=== PATIENT | female | born 1965 | race Caucasian/White ===

== ENCOUNTER 2018-07-08 08:52 | Outpatient (CLI) | payer BC ==
--- NOTE | 2018-07-08 10:21 | RAD ---
TWO VIEW ABDOMEN: Indication: Constipation, pain. FINDINGS: Lung bases are clear. There is no free air. Metallic instrumentation overlies the umbilical region. T here is moderate retained fecal material throughout the colon. Bowel gas pattern is nonobstructed. Os seous structures are nonacute in appearance. IMPRESSION: 1. Moderate retained fecal material in the colon. 2. No bowel obstruction or free air. POS: TPC
== END 2018-07-08 08:53 | disposition home or self-care (01) ==
LOC: BICRAD 08:52
PROVIDERS: ATTEND Family Medicine
DX: K59.00 Constipation, unspecified (principal)
CPT/HCPCS: 74018

== ENCOUNTER 2021-05-19 10:11 | Inpatient (IN) | payer BC ==
[2021-05-19 12:40] VITALS: BMI 24.0
[2021-05-19] MEDS ORDERED: Acetaminophen 650 MG Suppository PR PRN (12:45)
[2021-05-19] MEDS ORDERED: FLU VACC QS2021-22(6MOS UP)/PF 60 MCG/0.5 ML SYRINGE IM ONE (13:00)
[2021-05-19] MEDS ORDERED: Vancomycin 1 GM in Premix Bag 1 BAG IVPB SCH (13:00)
[2021-05-19 13:31] LABS: #Lymphocytes 1.3 thou/uL (1.20-3.40); #Monocytes 0.6 thou/uL (0.11-0.59); #Neutrophils 4.4 thou/uL (1.40-6.50); %Basophils 0.3 % (0.0-1.0); %Eosinophils 0.7 % (0.0-10.0); %Lymphocytes 20.9 % (21.0-51.0); %Monocytes 8.9 % (0.0-10.0); %Neutrophils 69.2 % (42.0-75.0); Hemoglobin 12.4 g/dL (12.0-16.0); Mean Corpuscular HGB CONC 35.4 g/dL (32.0-36.0); Mean Corpuscular Hemoglobin 32.5 pg (27.0-31.0); Mean Platelet Volume 9.1 fL (7.4-10.4); Platelet Count 138 thou/uL (130-400); RBC Distribution Width 11.3 % (11.5-14.5); Red Blood Cell (RBC) Count 3.82 mill/uL (4.20-5.40); White Blood Cell (WBC) Count 6.4 thou/uL (4.8-10.8)
[2021-05-19] MEDS: Fentanyl 100 MCG/2 ML VIAL SLOW IVP SCH ×5 (13:45→22:35)
[2021-05-19 13:51] LABS: ALT (SGPT) 29 U/L (8-55); AST (SGOT) 24 U/L (5-34); Albumin 4.1 g/dL (3.5-5.0); Alkaline Phosphatase 63 U/L (40-110); Anion Gap 14 mmol/L (10-20); BUN (Urea Nitrogen) 11 mg/dL (9.8-20.1); Bilirubin, Total 0.8 mg/dL (0.2-1.2); Calc. Creatinine Clearance 94 mL/min (70-130); Calcium 8.9 mg/dL (7.8-10.44); Carbon Dioxide 21 mmol/L (22-29); Chloride 107 mmol/L (98-107); Globulin 2.5 g/dL (2.4-3.5); Glucose 103 mg/dL (70-105); Lactic Acid 0.6 mmol/L (0.5-2.2); Potassium 3.9 mmol/L (3.5-5.1); Protein, Total 6.6 g/dL (6.0-8.3); Sodium 138 mmol/L (136-145)
[2021-05-19] MEDS ORDERED: ceFAZolin Sodium/D5W 2 GM in Premix Bag 1 BAG IVPB SCH (14:00)
[2021-05-19] MEDS: ceFAZolin Sodium/D5W 2 GM in Premix Bag 1 BAG IVPB SCH ×2 (16:15→23:25)
[2021-05-19] MEDS: Fentanyl 100 MCG/2 ML VIAL SLOW IVP PRN (18:00)
[2021-05-19 18:13] LABS: SARS-CoV-2 PCR by NAA Not Detected (NotDetected)
[2021-05-19] MEDS: HYDROcodone/Acetaminophen 10/325 mg Tablet PO PRN (21:00)
[2021-05-19] MEDS: Temazepam 15 MG CAP PO SCH (23:26)
[2021-05-20] MEDS: Fentanyl 100 MCG/2 ML VIAL SLOW IVP SCH ×11 (02:00→22:00)
[2021-05-20] MEDS: Fentanyl 100 MCG/2 ML VIAL SLOW IVP PRN (05:36)
[2021-05-20] MEDS: ceFAZolin Sodium/D5W 2 GM in Premix Bag 1 BAG IVPB SCH ×3 (06:18→22:24)
[2021-05-20] MEDS: HYDROcodone/Acetaminophen 10/325 mg Tablet PO PRN ×3 (07:21→22:15)
[2021-05-20 10:54] LABS: #Eosinphils 0.1 thou/uL (0.0-0.7); #Lymphocytes 1.5 thou/uL (1.20-3.40); #Monocytes 0.6 thou/uL (0.11-0.59); #Neutrophils 4.3 thou/uL (1.40-6.50); %Basophils 0.4 % (0.0-1.0); %Eosinophils 1.5 % (0.0-10.0); %Lymphocytes 23.1 % (21.0-51.0); %Monocytes 9.7 % (0.0-10.0); %Neutrophils 65.3 % (42.0-75.0); Hemoglobin 12.3 g/dL (12.0-16.0); Mean Corpuscular HGB CONC 34.2 g/dL (32.0-36.0); Mean Corpuscular Hemoglobin 31.5 pg (27.0-31.0); Mean Platelet Volume 9.2 fL (7.4-10.4); Platelet Count 152 thou/uL (130-400); RBC Distribution Width 11.3 % (11.5-14.5); Red Blood Cell (RBC) Count 3.91 mill/uL (4.20-5.40); White Blood Cell (WBC) Count 6.5 thou/uL (4.8-10.8)
[2021-05-20] MEDS ORDERED: Vancomycin HCl 1 GM in Sodium Chloride 0.9% 250 ML 250 ML IVPB SCH (11:00)
[2021-05-20] MEDS: Vancomycin HCl 1.25 GM in Sodium Chloride 0.9% 250 ML 250 ML IVPB SCH ×2 (11:54→23:39)
[2021-05-20] MEDS ORDERED: Bupivacaine 0.25% HCL 30 ML VIAL ONE (14:11)
[2021-05-20] MEDS ORDERED: EPINEPHrine 1 MG/ML AMP ONE (14:11)
[2021-05-20] MEDS ORDERED: Fentanyl 100 MCG/2 ML VIAL ONE ×2 (14:12→15:32)
[2021-05-20] MEDS ORDERED: ceFAZolin 2 GM/DEX 5% 100 ML BAG ONE (14:18)
[2021-05-20] MEDS ORDERED: ePHEDrine 50 MG/ML VIAL ONE (14:22)
[2021-05-20] MEDS ORDERED: Dexamethasone 20 MG/5 ML VIAL ONE (14:22)
[2021-05-20] MEDS ORDERED: PROPOFOL 200 MG/20 ML VIAL ONE (14:22)
[2021-05-20] MEDS ORDERED: Ondansetron PF 4 MG/2 ML Vial ONE (14:22)
[2021-05-20] MEDS ORDERED: Lidocaine 1% PF 5 ML VIAL ONE (14:22)
[2021-05-20] MEDS ORDERED: Bupivacaine PF 0.5% 30 ML VIAL ONE (14:48)
[2021-05-20] MEDS ORDERED: Neomycin-Polymyxin 1 ML AMP ONE (15:02)
[2021-05-20] MEDS: Temazepam 15 MG CAP PO SCH (23:39)
[2021-05-21] MEDS: Fentanyl 100 MCG/2 ML VIAL SLOW IVP SCH ×9 (00:30→14:59)
[2021-05-21] MEDS: HYDROcodone/Acetaminophen 10/325 mg Tablet PO PRN ×4 (06:20→21:31)
[2021-05-21] MEDS: ceFAZolin Sodium/D5W 2 GM in Premix Bag 1 BAG IVPB SCH ×3 (07:31→22:19)
[2021-05-21 10:55] LABS: #Lymphocytes 1.6 thou/uL (1.20-3.40); #Monocytes 0.9 thou/uL (0.11-0.59); #Neutrophils 6.1 thou/uL (1.40-6.50); %Basophils 0.2 % (0.0-1.0); %Eosinophils 0.5 % (0.0-10.0); %Lymphocytes 18.5 % (21.0-51.0); %Monocytes 10.3 % (0.0-10.0); %Neutrophils 70.6 % (42.0-75.0); Hemoglobin 12.4 g/dL (12.0-16.0); Mean Corpuscular HGB CONC 34.3 g/dL (32.0-36.0); Mean Corpuscular Hemoglobin 31.4 pg (27.0-31.0); Mean Corpuscular Volume 91.5 fL (78.0-98.0); Mean Platelet Volume 9.7 fL (7.4-10.4); Platelet Count 172 thou/uL (130-400); RBC Distribution Width 11.2 % (11.5-14.5); Red Blood Cell (RBC) Count 3.95 mill/uL (4.20-5.40); White Blood Cell (WBC) Count 8.7 thou/uL (4.8-10.8)
[2021-05-21] MEDS: Vancomycin HCl 1.25 GM in Sodium Chloride 0.9% 250 ML 250 ML IVPB SCH ×2 (11:07→23:34)
[2021-05-21] MEDS: Fentanyl 100 MCG/2 ML VIAL SLOW IVP PRN (12:14)
[2021-05-21] MEDS ORDERED: Butorphanol Tartrate 1 MG/ML VIAL SLOW IVP PRN (14:43)
[2021-05-21 22:26] LABS: Vancomycin, Trough 12.1 ug/mL
[2021-05-22] MEDS: Temazepam 15 MG CAP PO SCH ×2 (00:01→21:52)
[2021-05-22] MEDS: HYDROcodone/Acetaminophen 10/325 mg Tablet PO PRN ×4 (01:16→20:15)
[2021-05-22] MEDS: ceFAZolin Sodium/D5W 2 GM in Premix Bag 1 BAG IVPB SCH (06:08)
[2021-05-22 07:18] LABS: Anion Gap 12 mmol/L (10-20); BUN (Urea Nitrogen) 13 mg/dL (9.8-20.1); Calc. Creatinine Clearance 94 mL/min (70-130); Calcium 8.8 mg/dL (7.8-10.44); Carbon Dioxide 24 mmol/L (22-29); Chloride 108 mmol/L (98-107); Glucose 116 mg/dL (70-105); Potassium 4.5 mmol/L (3.5-5.1); Sodium 139 mmol/L (136-145)
[2021-05-22] MEDS ORDERED: Milk Of Magnesia 30 ML UDCUP PO SCH (08:00)
[2021-05-22] MEDS: Vancomycin HCl 1.25 GM in Sodium Chloride 0.9% 250 ML 250 ML IVPB SCH (11:05)
[2021-05-22] MEDS ORDERED: traMADol HCl 50 MG TAB PO PRN (16:19)
[2021-05-22] MEDS ORDERED: Meperidine HCl/PF 25 MG/ML VIAL IM PRN (16:21)
[2021-05-22] MEDS ORDERED: Ketorolac Tromethamine 30 MG/ML VIAL IVP PRN (16:21)
[2021-05-22] MEDS ORDERED: Communication Order-Pharmacy FS SCH (16:30)
[2021-05-22] MEDS ORDERED: TETANUS AND DIPHTHERIA TOX/PF 0.5 ML DISP.SYRIN IM SCH (16:30)
[2021-05-22] MEDS: Fentanyl 100 MCG/2 ML VIAL SLOW IVP PRN (16:44)
[2021-05-22] MEDS: Aspirin 81 mg Enteric Coated Tablet PO SCH (20:18)
[2021-05-23 07:26] LABS: #Eosinphils 0.2 thou/uL (0.0-0.7); #Lymphocytes 1.5 thou/uL (1.20-3.40); #Monocytes 0.3 thou/uL (0.11-0.59); #Neutrophils 1.5 thou/uL (1.40-6.50); %Basophils 1.2 % (0.0-1.0); %Eosinophils 4.7 % (0.0-10.0); %Lymphocytes 42.7 % (21.0-51.0); %Neutrophils 42.3 % (42.0-75.0); Hemoglobin 12.6 g/dL (12.0-16.0); Mean Corpuscular HGB CONC 35.9 g/dL (32.0-36.0); Mean Corpuscular Hemoglobin 32.7 pg (27.0-31.0); Mean Corpuscular Volume 91.1 fL (78.0-98.0); Platelet Count 183 thou/uL (130-400); RBC Distribution Width 11.1 % (11.5-14.5); Red Blood Cell (RBC) Count 3.85 mill/uL (4.20-5.40); White Blood Cell (WBC) Count 3.6 thou/uL (4.8-10.8)
[2021-05-23 07:41] LABS: Anion Gap 12 mmol/L (10-20); BUN (Urea Nitrogen) 15 mg/dL (9.8-20.1); Calc. Creatinine Clearance 93 mL/min (70-130); Calcium 9.2 mg/dL (7.8-10.44); Carbon Dioxide 25 mmol/L (22-29); Chloride 105 mmol/L (98-107); Glucose 93 mg/dL (70-105); Potassium 4.4 mmol/L (3.5-5.1); Sodium 138 mmol/L (136-145)
[2021-05-23] MEDS ORDERED: Ondansetron PF 4 MG/2 ML Vial IVP PRN (08:36)
[2021-05-23] MEDS: Aspirin 81 mg Enteric Coated Tablet PO SCH ×2 (09:14→20:25)
[2021-05-23] MEDS: HYDROcodone/Acetaminophen 10/325 mg Tablet PO PRN ×2 (11:53→15:57)
[2021-05-23] MEDS: Morphine 4 MG/ML VIAL SLOW IVP PRN (15:28)
[2021-05-23] MEDS ORDERED: Milk Of Magnesia 30 ML UDCUP PO SCH (19:00)
[2021-05-23] MEDS: Temazepam 15 MG CAP PO SCH (22:15)
[2021-05-24 07:34] LABS: #Eosinphils 0.1 thou/uL (0.0-0.7); #Lymphocytes 1.7 thou/uL (1.20-3.40); #Monocytes 0.5 thou/uL (0.11-0.59); #Neutrophils 1.8 thou/uL (1.40-6.50); %Eosinophils 2.7 % (0.0-10.0); %Lymphocytes 41.7 % (21.0-51.0); %Monocytes 11.8 % (0.0-10.0); %Neutrophils 42.8 % (42.0-75.0); Hemoglobin 13.5 g/dL (12.0-16.0); Mean Corpuscular HGB CONC 34.6 g/dL (32.0-36.0); Mean Corpuscular Hemoglobin 31.6 pg (27.0-31.0); Mean Corpuscular Volume 91.3 fL (78.0-98.0); Mean Platelet Volume 8.6 fL (7.4-10.4); Platelet Count 198 thou/uL (130-400); RBC Distribution Width 11.1 % (11.5-14.5); Red Blood Cell (RBC) Count 4.27 mill/uL (4.20-5.40); White Blood Cell (WBC) Count 4.1 thou/uL (4.8-10.8)
[2021-05-24] MEDS: HYDROcodone/Acetaminophen 10/325 mg Tablet PO PRN ×2 (07:47→22:45)
[2021-05-24] MEDS: Aspirin 81 mg Enteric Coated Tablet PO SCH ×2 (07:48→20:47)
[2021-05-24 07:54] LABS: Anion Gap 13 mmol/L (10-20); BUN (Urea Nitrogen) 15 mg/dL (9.8-20.1); Calc. Creatinine Clearance 82 mL/min (70-130); Calcium 9.4 mg/dL (7.8-10.44); Carbon Dioxide 25 mmol/L (22-29); Chloride 105 mmol/L (98-107); Glucose 101 mg/dL (70-105); Potassium 4.5 mmol/L (3.5-5.1); Sodium 138 mmol/L (136-145)
[2021-05-24] MEDS ORDERED: MEROPENEM 1 GM/50 ML 1 GM in Premix Bag 1 BAG IVPB SCH (08:15)
[2021-05-24] MEDS ORDERED: Meropenem 1 GM in Sodium Chloride 0.9% 100 ML IVPB SCH (14:00)
[2021-05-24] MEDS: Fentanyl 100 MCG/2 ML VIAL SLOW IVP PRN (14:20)
[2021-05-24] MEDS: Morphine 4 MG/ML VIAL SLOW IVP PRN (15:54)
[2021-05-24] MEDS: MEROPENEM 1 GM/50 ML 1 GM in Premix Bag 1 BAG IVPB SCH (16:03)
[2021-05-24] MEDS ORDERED: Fentanyl 100 MCG/2 ML VIAL ONE (17:23)
[2021-05-24] MEDS ORDERED: Bacitracin Zinc Ointment 30 gm TUBE ONE (17:24)
[2021-05-24] MEDS ORDERED: Bupivacaine PF 0.5% 30 ML VIAL ONE (17:24)
[2021-05-24] MEDS ORDERED: Neomycin-Polymyxin 1 ML AMP ONE (17:30)
[2021-05-24] MEDS ORDERED: Dexamethasone 20 MG/5 ML VIAL ONE (17:57)
[2021-05-24] MEDS ORDERED: Ondansetron PF 4 MG/2 ML Vial ONE (17:57)
[2021-05-24] MEDS ORDERED: ePHEDrine 50 MG/ML VIAL ONE (17:57)
[2021-05-24] MEDS ORDERED: PROPOFOL 200 MG/20 ML VIAL ONE (17:57)
[2021-05-24] MEDS ORDERED: PHENYLEPHRINE-NS 100 MCG/ML 10 ML SYRINGE ONE (17:57)
[2021-05-24] MEDS ORDERED: Lidocaine 1% PF 5 ML VIAL ONE (17:57)
[2021-05-24] MEDS ORDERED: Morphine 4 MG/ML VIAL SLOW IVP PRN (19:30)
[2021-05-24] MEDS: Temazepam 15 MG CAP PO SCH (22:45)
[2021-05-25] MEDS: MEROPENEM 1 GM/50 ML 1 GM in Premix Bag 1 BAG IVPB SCH ×3 (09:06→17:01)
[2021-05-25] MEDS: Aspirin 81 mg Enteric Coated Tablet PO SCH (09:06)
[2021-05-25] MEDS: HYDROcodone/Acetaminophen 10/325 mg Tablet PO PRN ×2 (10:08→17:12)
[2021-05-25 17:15] VITALS: BP 107/64; TEMP 98
[2021-05-26] MEDS ORDERED: Meropenem 1 GM in Sodium Chloride 0.9% 100 ML IVPB SCH
== END 2021-05-25 20:32 | disposition home or self-care (01) | DRG 982 ==
LOC: T4-B 11:42
PROVIDERS: ADMIT Specialist; ATTEND Specialist
PROC: 0R9 Upper Joints, Drainage (ICD-10-PCS; principal; 2021-05-21)
PROC: 0RBV0ZZ Excision of Left Metacarpophalangeal Joint, Open Approach (ICD-10-PCS; 2021-05-24)
DX: L02.512 Cutaneous abscess of left hand (principal); L03.114 Cellulitis of left upper limb; M00.9 Pyogenic arthritis, unspecified; W55.01XA Bitten by cat, initial encounter; Y92.008 Other place in unspecified non-institutional (private) residence as the place of occurrence of the external cause; K21.9 Gastro-esophageal reflux disease without esophagitis; Z90.49 Acquired absence of other specified parts of digestive tract; Z20.822 Contact with and (suspected) exposure to COVID-19
CPT/HCPCS: 36415; 80048; 80053; 80202; 83605; 84443; 85025; 85652; 87040; 87070; 87077; 87186; 87205; J0171; J1100; J2185; J2270; J2405; J2704; J3010; J3370; J3490; J7050; S0020; U0003; U0005